=== PATIENT | female | born 1990 | race Caucasian/White ===

== ENCOUNTER 2018-10-21 18:31 | Outpatient (CLI) | END 2018-10-21 22:06 | disposition home or self-care (01) ==

== ENCOUNTER 2018-12-02 18:33 | Outpatient (CLI) | payer OTHER ==
[~2018-12-02] VITALS: Ht 149.9 cm; Wt 80.8 kg
[~2018-12-02 18:33] MED LIST: PREN1TAB79 PO
[2018-12-02 18:42] VITALS: Ht 149.9 cm; Wt 80.8 kg
[2018-12-02 18:43] VITALS: BP 116/62; PULSE 98; RESP 20
--- NOTE | 2018-12-02 20:30 | TRIAGE ---
OB Triage Datetime Report Generated by CPN: 12/02/2018 20:30 Datetime: 12/02/2018 19:40 Stage of : OB Triage Labor Evaluation Frequency: Occasional Monitor Mode: External Resting Tone [place]: Relaxed Heart Rate FHR Baseline Rate: 150 Monitor Mode: External US Variability: Moderate 6-25 bpm Accelerations: 15X15 Decelerations: Variable Comments: Normal for gestational age Pain Assessment Pain Scale: 6 Pain Presence: Intermittent Pain Type: Contraction Pain Location: Abdomen Pain Relief Measures: Comfort Measures Datetime: 12/02/2018 18:40 Stage of : OB Triage Assessment Type: Triage Time of Arrival: 12/02/2018 18:31 EGA: 30.5 Arrived By: Ambulatory Arrived From: Home Chief Complaint: ABDOMINAL PAIN Movement: Present Contractions: Regular Contractions: EVERY 10-15 MINUTES Rupture of Membranes: Denies Vaginal Bleeding: None Vaginal Discharge: Denies Recent Sexual Intercouse: Denies Abdominal Trauma: Not Applicable Patient Complaints: Other Time Provider Notified: 12/02/2018 19:54 Provider Notified: Hadadian Initial Plan: EFM, UA Maternal Assessment Level of Consciousness: Fully Conscious DTR's/Clonus: DTRs 2+; No Clonus Headache: Denies Blurred Vision: No Respiratory Effort: Unlabored; Regular Rhythm; Equal Expansion Breath Sounds, Left: Clear and Equal Breath Sounds, Right: Clear and Equal Nausea/Vomiting: Denies RUQ Epigastric Pain: Denies Lower Extremities Edema: None Degree: None Upper Extremities Edema: None Degree: None Facial Edema: None Temperature Route: Axillary Fall Risk Assessment History of Falling: (0) No Secondary Diagnosis: (0) No Ambulatory Aid: (0) Bedrest/Nurse Assist IV Therapy: (0) No Gait: (0) Normal/Bedrest/Immobile Mental Status: (0) Oriented to Own Ability Fall Score: 0 Fall Risk Score Definition: No Risk: No action required Monitor Mode: External Monitor Mode: External US Pain Assessment Pain Scale: 6 Pain Presence: Intermittent Pain Type: Ache Pain Location: Abdomen Pain Goal: 0 Vaginal Exam Membrane Status: Intact Datetime: 10/21/2018 19:55 Fall Score: 0 Fall Risk Score Definition: No Risk: No action required Datetime: 10/21/2018 18:43 Fall Score: 0 Fall Risk Score Definition: No Risk: No action required Datetime: 10/21/2018 18:42 EGA: 24.5
--- NOTE | 2018-12-03 00:35 | PN ---
Triage Information Date/Time Reason for visit: Abd/pelvic pain Weeks of Gestation 30-week and 5 days /Para Diabetes: none Hypertention: none Additional information 38 years old with history of 2 labor at 35 and 36 weeks with single intrauterine at 30 weeks and 5 days with a ONUR of 317 2000-08-09 complaining of abdominal pain. She states good movement. She denies nausea, vomiting, shortness of breath, chest pain, headache, visual changes, vaginal bleeding or LOF. Objective Vital Signs Date Temp Pulse Resp B/P (MAP) Pulse Ox O2 O2 Flow FiO2 Time Delivery Rate 12/02/18 98.5 98 20 116/62 Room Air 18:43 (80) Heart Rate: 140's Contractions: None Results/Medications Results 24 hrs Laboratory Tests Test 12/02/18 18:30 12/02/18 19:15 Urine Color YELLOW Urine Clarity CLEAR Urine pH 6.0 Urine Specific [place] 1.014 Urine Ketones TRACE A Urine Nitrite NEGATIVE Urine Bilirubin NEGATIVE Urine Urobilinogen NEGATIVE Urine Leukocyte Esterase NEGATIVE Urine Hemoglobin NEGATIVE Urine Glucose NEGATIVE Urine Total Protein NEGATIVE Fibronectin NEGATIVE Imaging Results The cervix measures 3.7 cm in length. There is a single live intrauterine gestation. Cardiac activity is present with 154 beats per minute. There is a vertex presentation. The placenta is posterior. There is no evidence of placental abruption. There is a normal amount of amniotic fluid with an NIMA = 14.4 cm. Biophysical profile: movement 2/2 tone 2/2. breathing 2/2 NIMA 2/2 Total 8/8 RPTAT: AA . IMPRESSION: Normal biophysical profile. Cervix measures 3.7 cm in length. Disposition: Discharge Assessment/Plan 38 years old with history of 2 labor at 35 and 36 weeks with single intrauterine at 30 weeks and 5 days complaining of abdominal pain. Her exam was unremarkable. heart rate is category 1. Ultrasound performed as noted above with normal cervical length. fibronectin was negative. Patient discharged home in stable condition with follow-up in 2-3 days. Sign and symptom of labor, preeclampsia and kick count discussed with patient in detail. She expressed understanding. All of her questions answered. ABA HDEZ Dec 03, 2018 00:35
== END 2018-12-02 20:30 | disposition home or self-care (01) ==
LOC: OBT 18:33 → L-D 18:34 → OBT 20:30
PROVIDERS: ATTEND Obstetrics & Gynecology
DX: O26.893 Other specified pregnancy related conditions, third trimester (principal); R10.9 Unspecified abdominal pain; O09.213 Supervision of pregnancy with history of pre-term labor, third trimester; Z3A.36 36 weeks gestation of pregnancy
CPT/HCPCS: 76817; 76818; 81003; 82731; Z7500; G0463

== ENCOUNTER 2019-01-13 15:15 | Outpatient (CLI) | payer OTHER ==
[~2019-01-13] VITALS: Ht 149.9 cm; Wt 82.9 kg
[2019-01-13 15:39] VITALS: BP 124/69; PULSE 126; RESP 18; Ht 149.9 cm; Wt 82.9 kg
--- NOTE | 2019-01-14 00:09 | TRIAGE ---
OB Triage Datetime Report Generated by CPN: 01/14/2019 00:09 Datetime: 01/13/2019 19:41 Comments: Pt off monitor. Datetime: 01/13/2019 18:11 Labor Evaluation Frequency: 0 Monitor Mode: External Pattern: Normal: <= 5 Contractions in 10 Minutes Resting Tone Honor: Relaxed Heart Rate FHR Baseline Rate: 145 Monitor Mode: External US Variability: Moderate 6-25 bpm Accelerations: 10X10 Decelerations: None Category: Category I Pain Assessment Pain Scale: 5 Pain Presence: Intermittent Pain Type: Cramping Pain Location: Perineum Pain Goal: 3 Pain Relief Measures: Comfort Measures Datetime: 01/13/2019 17:16 Labor Evaluation Frequency: 0 Monitor Mode: External Pattern: Normal: <= 5 Contractions in 10 Minutes Resting Tone Honor: Relaxed Heart Rate FHR Baseline Rate: 145 Monitor Mode: External US Variability: Moderate 6-25 bpm Decelerations: None Category: Category I Pain Assessment Pain Scale: 5 Pain Presence: Intermittent Pain Type: Cramping Pain Location: Perineum Pain Goal: 3 Pain Relief Measures: Comfort Measures Datetime: 01/13/2019 16:15 Stage of : OB Triage Labor Evaluation Frequency: IRREG Monitor Mode: External Duration (sec)2399: 50-60 Pattern: Normal: <= 5 Contractions in 10 Minutes Resting Tone Honor: Relaxed Pain Assessment Pain Scale: 7 Pain Presence: Intermittent Pain Type: Cramping Pain Location: Abdomen Pain Goal: 3 Pain Relief Measures: Comfort Measures Vaginal Exam Dilatation (cms): 1.0 Effacement (%): 30 Station: -2 Exam By: Sanjiv DIAL Vaginal Bleeding: None Cervix, Consistency: Soft Cervix, Position: Posterior Presentation 'A': Cephalic Datetime: 01/13/2019 15:23 Stage of : OB Triage Assessment Type: Triage Maternal Assessment Level of Consciousness: Fully Conscious DTR's/Clonus: DTRs 2+; No Clonus Headache: Denies Blurred Vision: No Respiratory Effort: Unlabored; Regular Rhythm; Equal Expansion Breath Sounds, Left: Clear and Equal Breath Sounds, Right: Clear and Equal Nausea/Vomiting: Denies RUQ Epigastric Pain: Denies Facial Edema: None Temperature Route: Axillary Fall Risk Assessment History of Falling: (0) No Secondary Diagnosis: (0) No Ambulatory Aid: (0) Bedrest/Nurse Assist IV Therapy: (0) No Gait: (0) Normal/Bedrest/Immobile Mental Status: (0) Oriented to Own Ability Fall Score: 0 Fall Risk Score Definition: No Risk: No action required Labor Evaluation Frequency: APPLIED Monitor Mode: External Pattern: Normal: <= 5 Contractions in 10 Minutes Resting Tone Honor: Relaxed Heart Rate FHR Baseline Rate: APPLIED Monitor Mode: External US Pain Assessment Pain Scale: 7 Pain Presence: Intermittent Pain Type: Cramping Pain Location: Abdomen; Back; Perineum Pain Goal: 3 Pain Relief Measures: Comfort Measures Datetime: 01/13/2019 15:22 Time of Arrival: 01/13/2019 15:01 EGA: 36.5 Arrived By: Ambulatory Arrived From: Home Chief Complaint: C/O MUCUS DISCHARGE X 1 WEEK DENIES BLEEDING, HAS SOME CRAMPING, DELIVERED PREMATU RE AT 35 AND 36 WEEKS Movement: Present Contractions: Irregular Rupture of Membranes: Denies Vaginal Bleeding: None Vaginal Discharge: Present Recent Sexual Intercouse: Denies Abdominal Trauma: Not Applicable Patient Complaints: Cramping Initial Plan: MONITOR,BPP, NIMA, ambulate, VE Datetime: 12/24/2018 11:00 Fall Score: 0 Fall Risk Score Definition: No Risk: No action required Datetime: 12/24/2018 10:59 EGA: 33.6 Datetime: 12/02/2018 18:40 EGA: 30.5 Fall Score: 0 Fall Risk Score Definition: No Risk: No action required Datetime: 10/21/2018 19:55 Fall Score: 0 Fall Risk Score Definition: No Risk: No action required Datetime: 10/21/2018 18:43 Fall Score: 0 Fall Risk Score Definition: No Risk: No action required Datetime: 10/21/2018 18:42 EGA: 24.5
--- NOTE | 2019-01-14 02:36 | PN ---
Triage Information Date/Time Reason for visit: Abd/pelvic pain Weeks of Gestation 36 weeks and 5 days /Para (2 ectopic ) Diabetes: none Hypertention: none Objective Vital Signs Date Temp Pulse Resp B/P (MAP) Pulse Ox O2 O2 Flow FiO2 Time Delivery Rate 01/13/19 98.8 126 18 124/69 15:39 (87) Heart Rate: 140's Contractions: None Results/Medications Imaging Results INDINGS: breathing movement = 2/2 tone = 2/2 motion = 2/2 Quantitative amniotic fluid volume = 2/2 NIMA = 9.0 cm Single live intrauterine with cardiac activity at 173 beats per minute. There is a anterior fundal placenta without previa or abruption. IMPRESSION: 1. Single living intrauterine gestation in cephalic position. 2. Biophysical profile = 8/8. 3. NIMA = 9.0 cm. Disposition: Discharge Assessment/Plan 28 years old (2 ectopic ) with single intrauterine at 36 weeks and 5 days with ONUR of 02/05/2019 complaining of abdominal cramp. She states good movement. She denies nausea, vomiting, shortness of breath, chest pain, headache, visual changes, vaginal bleeding or LOF. Initially she had irregular uterine contractions. 1 dose of terbutaline given. No further uterine contraction noted. heart rate category 1. Ultrasound performed as noted above. Symptoms and sign of labor, preeclampsia, kick count discussed with patient, she voiced understanding. All of her questions answered. Patient was discharged home in stable condition with the appropriate discharge instructions provided. I would like patient to have close follow-up with her primary physician or outpatient clinic in 1-2 days or return to triage for worsening symptoms or any other urgent concerns. ABA HDEZ Jan 14, 2019 02:36
== END 2019-01-13 21:45 | disposition home or self-care (01) ==
LOC: OBT 15:15 → L-D 15:15 → OBT 21:45
PROVIDERS: ATTEND Obstetrics & Gynecology
DX: O26.893 Other specified pregnancy related conditions, third trimester (principal); Z3A.36 36 weeks gestation of pregnancy; R10.2 Pelvic and perineal pain
CPT/HCPCS: 76818; Z7500; G0463

== ENCOUNTER 2019-02-02 17:15 | Inpatient (IN) | payer OTHER ==
[~2019-02-02] VITALS: Ht 149.9 cm; Wt 84.8 kg
[2019-02-02 17:25] VITALS: Ht 149.9 cm; Wt 84.8 kg
[2019-02-02 17:26] VITALS: BP 121/68; PULSE 101; RESP 18
[2019-02-02] MEDS ORDERED: ACETAMINOPHEN 500 MG TAB PO STA (18:30)
--- NOTE | 2019-02-02 20:46 | HP ---
Date/Time of Note Date/Time of Note DATE: 02/02/19 TIME: 20:37 OB - History Hx of Present Free Text/Dictation 28.o here at 39w with uc's q6min since this am 1100 with intact membrane. VE 12/21/-3 recheck /-3 BPP 8/8 , NIMA 7.6 EFW 3229gm 58% Hx of right ovarian cyst with this at 14w Hx of x2 PTB desire to be augmented for labor. admitted for pitocin augmentation. Chief Complaint: uc's Estimated Due Date: Feb 09, 2019 : 7 Para: 2 Spontaneous : 2 Therapeutic : 2 Care: Good Care Ultrasounds: Normal mid trimester US Obstetrical Complications: None Medical Complications: None Past Family/Social History * Past Medical, Surgical, Family and Obstetric Histories reviewed from chart. Blood Type: O+ Rubella: immune RPR/VDRL: Negative GBS Status: Negative HBsAG: Negative OB Admission Exam Vital Signs Vital Signs Vital Signs Date Temp Pulse Resp B/P (MAP) Pulse Ox O2 O2 Flow FiO2 Time Delivery Rate 02/02/19 98.6 101 18 121/68 Room Air 17:26 (85) Physical Exam HEENT: WNL Heart: Rhythm Normal Lungs: Clear, Equal Abdomen: WNL Extremities: Normal Reflexes: Normal Cervical Dilatation: 2cm Effacement: Other (60%) Station: -3 Membranes: Intact Amniotic Fluid: Unevaluable Heart Rate: 150's Accelerations: Accelerations Present Decelerations: No Decelerations Varibility: Moderate Contractions on Admission: >10 Minutes Apart Intensity: Mild OB Assessment/Plan Other Assessment: IUP 39w early labor Plan: Other Induction Method: per Pitocin Protocol (pitoci augmentation) REDDY ADAMSON MD Feb 02, 2019 20:46
[2019-02-02] MEDS ORDERED: LACTATED RINGER'S 1,000 ML IV PRN (22:04)
[2019-02-02] MEDS ORDERED: LIDOCAINE 1% (MPF) 30 ML INJ INJ PRN (22:30)
[2019-02-02] MEDS ORDERED: OXYTOCIN 30 UNITS/LR 500 ML IV SCH ×3 (22:30)
[2019-02-02] MEDS ORDERED: METHYLERGONOVINE 0.2 MG INJ IM PRN (22:30)
[2019-02-02] MEDS ORDERED: IBUPROFEN 600 MG TAB PO PRN (22:30)
[2019-02-02] MEDS ORDERED: MISOPROSTOL 200 MCG TAB PR PRN (22:30)
[2019-02-02] MEDS ORDERED: BUTORPHANOL 2 MG INJ IV PRN (22:30)
[2019-02-02] MEDS ORDERED: CARBOPROST 250 MCG INJ IM PRN (22:30)
[2019-02-02] MEDS ORDERED: BUTORPHANOL 1 MG INJ IV PRN (22:30)
[2019-02-02] MEDS ORDERED: AMPICILLIN 2 GM/NS (PMX) 100 ML IV ONE (22:30)
[2019-02-02] MEDS ORDERED: OXYTOCIN 30 UNITS/LR 500 ML IV PRN (22:30)
[2019-02-03] MEDS: LACTATED RINGER'S 1,000 ML IV SCH ×3 (01:01→10:46)
[2019-02-03] MEDS ORDERED: AMPICILLIN 1 GM/NS (PMX) 50 ML IV SCH (02:30)
--- NOTE | 2019-02-03 09:31 | PREAC ---
Date/Time of Note Date/Time of Note DATE: 02/03/19 TIME: 09:30 Anesthesia Eval and Record Evaluation Time Pre-Procedure Interview DATE: 02/03/19 TIME: 09:30 Age 28 Sex female NPO: 8 hrs Preoperative diagnosis labor pain Planned procedure labor epidural Past Medical History Past Medical History: None Surgery & Anesthesia Issues No known issue Meds Anticoagulation: No Beta Carlos within 24 hr: No Reason Beta Carlos not given: Pt. not on B-Carlos Reported Medications Vit W-Ca,Fe,FA(<1 mg) ( Vitamins) 1 Each Tablet, 1 EACH PO DAILY 10/21/18 Current Medications Lactated Ringer's 1,000 ml @ 125 mls/hr Q8H IV Last administered on 02/03/19at 03:50; Admin Dose 125 MLS/HR; Start 02/02/19 at 22:04 Butorphanol Tartrate (Stadol) 1 mg Q2H PRN IV .PAIN; Start 02/02/19 at 22:30 Butorphanol Tartrate (Stadol) 2 mg Q2H PRN IV .PAIN; Start 02/02/19 at 22:30 Lidocaine (Xylocaine 1% (Mpf)) 30 ml ONCE PRN INJ .EPISIOTOMY; Start 02/02/19 at 22:30 Oxytocin/Lactated Ringer's 500 ml @ 500 mls/hr ONCE POST IV ; Start 02/02/19 at 22:30 Oxytocin/Lactated Ringer's 500 ml @ 125 mls/hr POST IV ; Start 02/02/19 at 22:30 Ibuprofen (Motrin) 600 mg ONCE PRN PO .PAIN 1-5; Start 02/02/19 at 22:30 Lactated Ringer's 1,000 ml @ 2,000 mls/hr Q30M PRN IV .ANESTHESIA; Start 02/02/19 at 22:04 Oxytocin/Lactated Ringer's 500 ml @ 0 mls/hr ONCE PRN IV .VAGINAL BLEEDING; Start 02/02/19 at 22:30 Methylergonovine Maleate (Methergine) 0.2 mg ONCE PRN IM .VAGINAL BLEEDING; Start 02/02/19 at 22:30 Carboprost Tromethamine (Hemabate) 250 mcg ONCE PRN IM .VAGINAL BLEEDING; Start 02/02/19 at 22:30 Misoprostol (Cytotec) 1,000 mcg ONCE PRN AR .VAGINAL BLEEDING; Start 02/02/19 at 22:30 Oxytocin/Lactated Ringer's 500 ml @ 0 mls/hr FOR AUGMENTATION IV Last administered on 02/03/19at 06:17; Admin Dose 1 MLS/HR; Start 02/02/19 at 22:30 Meds reviewed: Yes Allergies Coded Allergies: No Known Allergy (Unverified , 02/02/19) Allergies Reviewed: Yes Labs/Studies Labs Reviewed: Reviewed by anesthesiologist Result Diagram: 02/02/19 2249 Laboratory Tests 02/02/19 22:49 Blood Bank Test 02/02/19 22:49 Antibody Screen NEGATIVE Blood Type O POSITIVE Rh Immune Globulin Candidate NO test: Positive Pre-procedure Exam Last vitals Vital Signs Date Temp Pulse Resp B/P (MAP) Pulse Ox O2 O2 Flow FiO2 Time Delivery Rate 02/02/19 98.6 101 18 121/68 Room Air 17:26 (85) Airway: Adequate mouth opening, Adequate thyromental dist Mallampati: Mallampati III Teeth: Normal Lung: Normal Heart: Normal ASA Physical Status ASA physical status: 2 Emergency: None Planned Anesthetic Neuraxial: Epidural Planned Pain Management Epidural, Parenteral pain med Pre-operative Attestations Prior to commencing anesthesia and surgery, the patient was re-evaluated, there was verification of: *The patient's identity *The results of appropriate recent lab work and preoperative vital signs *The above evaluation not changing prior to induction *Anesthetic plan, risk benefits, alternative and complications discussed with patient/family; questions answered; patient/family understands, accepts and wishes to proceed. MIRNA LOYA MD Feb 03, 2019 09:31
--- NOTE | 2019-02-03 09:33 | PAC ---
Date/Time of Note Date/Time of Note DATE: 02/03/19 TIME: 09:33 Post-Anesthesia Notes Post-Anesthesia Note Last documented vital signs Vital Signs Date Temp Pulse Resp B/P (MAP) Pulse Ox O2 O2 Flow FiO2 Time Delivery Rate 02/02/19 98.6 101 18 121/68 Room Air 17:26 (85) Activity: WNL Respiratory function: WNL Cardiovascular function: WNL Mental status: Baseline Pain reasonably controlled: Yes Hydration appropriate: Yes Nausea/Vomiting absent: Yes MIRNA LOYA MD Feb 03, 2019 09:33
[2019-02-03] MEDS ORDERED: ONDANSETRON 4 MG INJ IV PRN (10:00)
[2019-02-03] MEDS ORDERED: KETOROLAC 30 MG INJ IV PRN (10:00)
[2019-02-03] MEDS ORDERED: DIPHENHYDRAMINE 50 MG INJ IV PRN (10:00)
[2019-02-03] MEDS ORDERED: NALOXONE (0.4 MG/ML) INJ IV PRN (10:00)
[2019-02-03] MEDS ORDERED: ZOLPIDEM 5 MG TAB PO PRN ×2 (10:00→21:30)
[2019-02-03] MEDS ORDERED: FENTAnyl 2MCG/ML-ROPIV 0.2% 100 ML BAG EPI SCH (10:00)
[2019-02-03] MEDS ORDERED: HYDROmorphONE 0.5 MG/0.5 ML SYG IV PRN ×2 (10:00)
[2019-02-03] MEDS ORDERED: MINERAL OIL LIGHT 10 ML VIAL TOP PRN (18:05)
--- NOTE | 2019-02-03 18:50 | LDN ---
Date/Time of Note Date/Time of Note DATE: 02/03/19 TIME: 18:49 Delivery Summary of normal male Weeks of Gestation 39w Placenta Delivered: Spontaneously, Intact & Complete Meconium: none Episiotomy: No Perineal laceration: 0 Anesthesia type: Epidural Estimated blood loss: 100 Sponge & Needle done & correct: Yes All needle counts correct: Yes Any foreign bodies felt in the: No Delivery Information Sex Sex: male Apgars 1 Minute: 9 5 Minute: 9 Suctioning Nose & mouth suctioned at chaz: Yes Delee suction performed: Yes Umbilical Cord Umbilical cord with: 3 Vessels Cord presentations: no nuchal cord Cord Blood was obtained: Yes Mother & Baby Disposition Disposition Mom & Baby to Maternity; Good: Yes Mom transferred to: Other Baby to NICU: No () REDDY ADAMSON MD Feb 03, 2019 18:50
[2019-02-03 20:45] VITALS: BP 136/80; PULSE 96; RESP 18
[2019-02-03 20:47] VITALS: BP 140/81; PULSE 80; RESP 18
[2019-02-03] MEDS ORDERED: LANOLIN HPA 1 PKT TOP PRN (21:30)
[2019-02-03] MEDS ORDERED: CARBOPROST 250 MCG INJ IM PRN (21:30)
[2019-02-03] MEDS ORDERED: BENZOCAINE 20% 56 ML SPRAY TOP PRN (21:30)
[2019-02-03] MEDS ORDERED: OXYTOCIN 30 UNITS/LR 500 ML IV PRN (21:30)
[2019-02-03] MEDS ORDERED: WITCH HAZEL/GLYCERIN PAD PR PRN (21:30)
[2019-02-03] MEDS ORDERED: METHYLERGONOVINE 0.2 MG INJ IM PRN (21:30)
[2019-02-03] MEDS ORDERED: OXYCODONE/ASPIRIN (4.88/325) TAB PO PRN ×2 (21:30)
[2019-02-03] MEDS ORDERED: MISOPROSTOL 200 MCG TAB PR PRN (21:30)
[2019-02-03] MEDS: IBUPROFEN 600 MG TAB PO SCH (23:57)
[2019-02-04] VITALS: BP 125/70; PULSE 96; RESP 18
[2019-02-04 03:36] VITALS: BP 110/60; PULSE 78; RESP 18
[2019-02-04] MEDS: IBUPROFEN 600 MG TAB PO SCH ×3 (06:14→17:49)
[2019-02-04 07:50] VITALS: BP 113/67; PULSE 68; RESP 17
[2019-02-04] MEDS: SENNA/DOCUSATE NA (8.6MG/50MG) TAB PO SCH ×2 (09:32→21:54)
--- NOTE | 2019-02-04 11:06 | PN ---
Date/Time of Note Date/Time of Note DATE: 02/04/19 TIME: 11:05 OB Subjective Subjective Subjective Denies any chest pain or shortness of breath. Denies any dizziness or lightheadedness. Breast-feeding. Denies any complaint. Urinated. Reports decreased vaginal bleeding. OB Objective Objective Objective General appearance: Alert and oriented x4 does not appear to be in any acute distress Abdomen: Soft, fundus palpable below the umbilicus and nontender Lungs: Clear to auscultation bilaterally CV: RRR Breast: No evidence of mastitis or fissure Extremities no calf tenderness, no cord palpable, negative Homans sign CBC & BMP 02/02/19 22:49 02/04/19 07:02 OB Assessment/Plan Other Assessment: Status post day #1 Anemia, , asymptomatic Doing well Routine care Anticipate DC home tomorrow Iron daily with vitamin SAMANTHA VELAZQUEZ MD Feb 04, 2019 11:06
[2019-02-04 15:30] VITALS: BP 128/85; PULSE 81; RESP 18
[2019-02-04 20:33] VITALS: BP 118/66; PULSE 80; RESP 18
[2019-02-05] MEDS: IBUPROFEN 600 MG TAB PO SCH ×3 (00:23→11:21)
[2019-02-05 05:00] VITALS: BP 107/57; PULSE 70; RESP 18
[2019-02-05 08:20] VITALS: BP 100/53; PULSE 66; RESP 16
[2019-02-05] MEDS: SENNA/DOCUSATE NA (8.6MG/50MG) TAB PO SCH (08:58)
[2019-02-05] MEDS ORDERED: DIPHTH/TET/ACEL PERTUSS (ADULT) 0.5 ML VIAL IM* ONE (09:00)
--- NOTE | 2019-02-05 12:49 | PN ---
Date/Time of Note Date/Time of Note DATE: 02/05/19 TIME: 12:47 OB Subjective Subjective Subjective PPD# 2 Patient is doing well. She denies nausea, vomiting, shortness of breath, chest pain, headache. She has been ambulating without difficulty, tolerating regular diet. Pain is well controlled on current medications OB Objective Objective Objective Vital Signs Date Temp Pulse Resp B/P (MAP) Pulse Ox O2 O2 Flow FiO2 Time Delivery Rate 02/05/19 98.3 66 16 100/53 Room Air 08:20 (69) General: AAO X 3, comfortable, NAD, appropriate mood and affect. ABD: +BS. Soft, non-tender. Uterus 2 cm below umbilicus Flank: No CVA tenderness (B/L) LE: Mild edema. No clubbing, cyanosis, thigh or calf tenderness (B/L). Homans 'sign is negative Laboratory Tests Test 02/04/19 06:17 02/04/19 07:02 Lab Scanned Report [facility] [id number] White Blood Count 10.6 10^3/ul Red Blood Count 3.33 10^6/ul Hemoglobin 9.5 g/dl Hematocrit 29.4 % Mean Corpuscular Volume 88.3 fl Mean Corpuscular Hemoglobin 28.5 pg Mean Corpuscular Hemoglobin Concent 32.3 g/dl Red Cell Distribution Width 13.1 % Platelet Count 237 10^3/UL Mean Platelet Volume 11.6 fl Immature Granulocytes % 0.700 % Neutrophils % 71.5 % Lymphocytes % 19.5 % Monocytes % 7.9 % Eosinophils % 0.3 % Basophils % 0.1 % Nucleated Red Blood Cells % 0.0 /100WBC Immature Granulocytes # 0.070 10^3/ul Neutrophils # 7.6 10^3/ul Lymphocytes # 2.1 10^3/ul Monocytes # 0.8 10^3/ul Eosinophils # 0.0 10^3/ul Basophils # 0.0 10^3/ul Nucleated Red Blood Cells # 0.0 10^3/ul OB Assessment/Plan Other plan: 28 years old s/p normal vaginal delivery at 39 weeks and 1 day. PPD#2 - AF, VSS - Baby is doing well, at bed side. She is bonding well - Contraception methods with R/B/A/FR discussed - Continue care - Discharge home - Rx and instruction given - Follow up in 2 and 6 weeks at clinic 2) Anemia: Recommend ferrous sulfate 325 mg twice daily and continue vitamin. ABA HDEZ Feb 05, 2019 12:49
--- NOTE | 2019-02-05 12:50 | DS ---
Date/Time of Note Date/Time of Note DATE: 02/05/19 TIME: 12:49 Obstetrical Discharge Record Final Diagnosis Final Diagnosis: Term delivered Other Final Diagnosis 28 years old s/p normal vaginal delivery at 39 weeks and 1 day. PPD#2. course was unremarkable. She is ambulating and tolerating regular diet. She is voiding without difficulty. Pain is controlled on current medication. - AF, VSS - Baby is doing well, at bed side. She is bonding well - Contraception methods with R/B/A/FR discussed - Continue care - Discharge home - Rx and instruction given - Follow up in 2 and 6 weeks at clinic 2) Anemia: Recommend ferrous sulfate 325 mg twice daily and continue vitamin. Vaginal Delivery Obstetrical Delivery: Spontaneous Condition on Discharge Physical Assessment Last Vitals: Vital Signs Date Temp Pulse Resp B/P (MAP) Pulse Ox O2 O2 Flow FiO2 Time Delivery Rate 02/05/19 98.3 66 16 100/53 Room Air 08:20 (69) Voiding: Yes Bowel Movement: Yes Breast: Soft, non-tender Fundus: Firm Calf Tenderness: No Patient Condition: Stable ABA HDEZ Feb 05, 2019 12:50
== END 2019-02-05 14:00 | disposition home or self-care (01) | DRG 807 ==
LOC: OBT 17:15 → L-D 17:16 → OBT 20:20 → L-D 20:20 → PP1 02-03 20:44
PROVIDERS: ADMIT Obstetrics & Gynecology; ATTEND Obstetrics & Gynecology
PROC: 4A1HXCZ Monitoring of Products of Conception, Cardiac Rate, External Approach (ICD-10-PCS; 2019-02-02)
PROC: 10E0XZZ Delivery of Products of Conception, External Approach (ICD-10-PCS; principal; 2019-02-03)
PROC: 3E0234Z Introduction of Serum, Toxoid and Vaccine into Muscle, Percutaneous Approach (ICD-10-PCS; 2019-02-05)
DX: O90.81 Anemia of the puerperium (principal); Z37.0 Single live birth; Z3A.39 39 weeks gestation of pregnancy; Z23 Encounter for immunization
CPT/HCPCS: 62319; 76815; 76818; 85025; 85610; 85730; 86592; 86850; 86900; 86901; 87340; 90686; 90715; G0463; J2590; J3010; J7120